=== PATIENT | male | born 1980 | race Caucasian/White ===

== ENCOUNTER 2016-05-28 23:47 | Emergency (ER) | payer MEDICAID ==
[~2016-05-28] VITALS: Ht 188 cm; Wt 105.0 kg
[~2016-05-28 23:47] MED LIST: BACL10TA PO; BUSP5TAB PO; GABA600T PO; MULTCAP3; OXYC-259 PO; OXYC-395 PO; VITA10003 PO
[2016-05-28 23:49] VITALS: BP 158/85; PULSE 90; RESP 20; TEMP 97.9; O2SAT 100
[2016-05-29 01:36] VITALS: BP 131/88; PULSE 85; RESP 16; O2SAT 97
[2016-05-29] MEDS ORDERED: ONDANSETRON HCL 4 MG/2 ML VIAL IV PUSH ONE (02:00)
[2016-05-29] MEDS ORDERED: HYDROmorphone HCL PF 1 MG/ML VIAL IV PUSH ONE (02:00)
[2016-05-29] MEDS ORDERED: SODIUM CHLOR 0.9% 1000 ML INJ 1,000 ML IV ONE (02:00)
--- NOTE | 2016-05-29 02:00 | PD ---
HPI Chief Complaint: Back/ Neck Pain or Injury Time Seen by Provider: 00:48 Travel History International Travel<30 days: No Contact w/Intl Traveler<30days: No Traveled to known affect area: No History of Present Illness HPI 36-year-old male complains of back pain. Patient has severe chronic back pain, status post back surgery and has been seen by neurosurgeon and pain management for back pain. Patient recently was seen at [facility] and has CT scan of the back and was referred to see Dr. Shetty for follow-up. Patient has appointment with Dr. Padron 2 days. Patient states that he has increasing pain today from upper back to low back area. Patient states that he has insomnia and poor appetite for the pain. Patient denies any recent injury. Patient denies any fever chills. Patient denies any problem with bladder or bowel control. Patient denies any focal weakness and numbness of extremity. Patient states that he has tingling sensation of the right upper extremity recently. PFSH Past Medical History Diminished Hearing: No Headaches: No Herniated Disk: Yes Musculoskeletal: Yes (CHRONIC BACK PAIN l3 repair. 4 herniated discs neck and back) Immunizations Current: Yes Past Surgical History Abdominal Surgery: No Cardiac Surgery: No Ear Surgery: No Endocrine Surgery: No Eye Surgery: No Genitourinary Surgery: No Gynecologic Surgery: No Joint Replacement: No Neurologic Surgery: Yes (laminecotomy and discectomy) Oral Surgery: No Thoracic Surgery: No Other Surgery: Yes (SKIN GRAFT ON RIGHT HAND AND ARM) Social History Alcohol Use: No Tobacco Use: No Substance Use: No Allergies-Medications (Allergen,Severity, Reaction): Coded Allergies: Decadron (Verified Allergy, Mild, RASH, 05/28/16) Morphine (Verified Allergy, Unknown, Anaphylaxis, 05/28/16) Reported Meds & Prescriptions Reported Meds & Active Scripts Active Reported Buspirone (Buspirone HCl) 5 Mg Tab 5 Mg PO BID Multivitamins (Multiple Vitamin) 1 Cap Cap Vitamin D-3 (Cholecalciferol) 1,000 Unit Tab 5,000 Units PO DAILY Baclofen 10 Mg Tab 10 Mg PO HS PRN Oxycontin (Oxycodone HCl) 10 Mg Tab 10 Mg PO Q12HR Gabapentin 600 Mg Tab 600 Mg PO BID Review of Systems General / Constitutional: No: Fever Eyes: No: Visual changes HENT: No: Headaches Cardiovascular: No: Chest Pain or Discomfort Respiratory: No: Shortness of Breath Gastrointestinal: No: Abdominal Pain Genitourinary: No: Dysuria Musculoskeletal: No: Pain Skin: No Rash Neurologic: No: Weakness Psychiatric: No: Depression Endocrine: No: Polydipsia Hematologic/Lymphatic: No: Easy Bruising Physical Exam Narrative GENERAL: Well-nourished, well-developed patient. SKIN: Warm and dry. HEAD: Normocephalic. EYES: No scleral icterus. No injection or drainage. NECK: Supple, trachea midline. No JVD or lymphadenopathy. CARDIOVASCULAR: Regular rate and rhythm without murmurs, gallops, or rubs. RESPIRATORY: Breath sounds equal bilaterally. No accessory muscle use. GASTROINTESTINAL: Abdomen soft, non-tender, nondistended. MUSCULOSKELETAL: No cyanosis, or edema. BACK: Patient has moderate tenderness on palpation thoracic lumbar area, without obvious deformity. No CVA tenderness. Neurologic exam: Patient is awake and alert oriented 3. Patient had limited range of motion upper and lower extremity secondary to pain. Otherwise no obvious deformity. Sensorimotor function distally intact. Deep tendon reflexes 2+ and equal. Negative Babinski. Data Data Last Documented VS Vital Signs Date Time Temp Pulse Resp B/P Pulse Ox O2 Delivery O2 Flow Rate FiO2 05/29/16 01:36 85 16 131/88 97 Room Air 05/28/16 23:49 97.9 Orders Complete Blood Count With Diff (05/29/16 01:52) Basic Metabolic Panel (Bmp) (05/29/16 01:52) Iv Access Insert/Monitor (05/29/16 01:52) Ecg Monitoring (05/29/16 01:52) Oximetry (05/29/16 01:52) Ct Thor Spine W/O Contrast (05/29/16 01:52) Ct Lumb Spine W/O Contrast (05/29/16 01:52) Hydromorphone Pf Inj (Dilaudid Pf Inj) (05/29/16 02:00) Ondansetron Inj (Zofran Inj) (05/29/16 02:00) Sodium Chlor 0.9% 1000 Ml Inj (Ns 1000 M (05/29/16 02:00) Labs Laboratory Tests Test 05/29/16 02:00 White Blood Count 6.3 TH/MM3 Red Blood Count 5.05 MIL/MM3 Hemoglobin 15.0 GM/DL Hematocrit 43.0 % Mean Corpuscular Volume 85.2 FL Mean Corpuscular Hemoglobin 29.7 PG Mean Corpuscular Hemoglobin 34.9 % Concent Red Cell Distribution Width 12.2 % Platelet Count 206 TH/MM3 Mean Platelet Volume 9.4 FL Neutrophils (%) (Auto) 59.9 % Lymphocytes (%) (Auto) 31.7 % Monocytes (%) (Auto) 7.3 % Eosinophils (%) (Auto) 0.5 % Basophils (%) (Auto) 0.6 % Neutrophils # (Auto) 3.8 TH/MM3 Lymphocytes # (Auto) 2.0 TH/MM3 Monocytes # (Auto) 0.5 TH/MM3 Eosinophils # (Auto) 0.0 TH/MM3 Basophils # (Auto) 0.0 TH/MM3 CBC Comment DIFF FINAL Differential Comment Sodium Level 140 MEQ/L Potassium Level 3.5 MEQ/L Chloride Level 103 MEQ/L Carbon Dioxide Level 29.8 MEQ/L Anion Gap 7 MEQ/L Blood Urea Nitrogen 13 MG/DL Creatinine 0.98 MG/DL Estimat Glomerular Filtration 88 ML/MIN Rate Random Glucose 103 MG/DL Calcium Level 9.3 MG/DL MDM Medical Decision Making Medical Screen Exam Complete: Yes Emergency Medical Condition: Yes Interpretation(s) 3:[address] shows disc protrusion at L4-L5 with severe stenosis. CT thoracic spine shows DJD changes and disc protrusion at T7-T8. CBC within normal limit. BMP within normal limit. Differential Diagnosis Differential diagnosis including acute exacerbation of back pain, fracture, HNP. Narrative Course 36-year-old male with acute exacerbation of back pain. Normal saline solution 1 L IV bolus. Dilaudid 1 mg IV. Zofran 4 mg IV. Diagnosis Primary Impression: Acute exacerbation of chronic low back pain Patient Instructions: General Instructions Additional Instructions: Continue with medications. Follow-up with personal physician and Dr. Shetty as directed. Return if worse. Med/Other Pt SpecificInfo: No Change to Meds Disposition: 01 DISCHARGE HOME Condition: Stable Matty Gunter MD May 29, 2016 02:00
[2016-05-29 02:27] LABS: AUTOMATED NEUTROPHIL # 3.8 TH/MM3 (1.8-7.7); BASOPHIL % 0.6 % (0.0-2.0); EOSINOPHIL % 0.5 % (0.0-4.0); HEMO FLAGS DIFF FINAL; LYMPH % 31.7 % (9.0-44.0); MEAN CELL VOLUME 85.2 FL (80.0-100.0); MEAN CORPUSCULAR HEMOGLOBIN 29.7 PG (27.0-34.0); MEAN CORPUSCULAR HGB CONC 34.9 % (32.0-36.0); MONO % 7.3 % (0.0-8.0); NEUT % 59.9 % (16.0-70.0); PLATELET COUNT 206 TH/MM3 (150-450); RED BLOOD COUNT 5.05 MIL/MM3 (4.50-5.90); RED CELL DISTRIBUTION WIDTH 12.2 % (11.6-17.2); WHITE BLOOD COUNT 6.3 TH/MM3 (4.0-11.0)
[2016-05-29 02:37] LABS: BICARBONATE 29.8 MEQ/L (21.0-32.0); POTASSIUM 3.5 MEQ/L (3.5-5.1)
--- NOTE | 2016-05-29 03:12 | RADRPT ---
EXAM DATE/TIME: 05/29/2016 02:41 [facility] COMPARISON: CT LUMBAR SPINE W/O CONTRAST, May 29, 2016, 2:44. CT THORACIC SPINE W/O CONTRAST, April 21, 22:07. CT LUMBAR SPINE W/O CONTRAST, April 21, 2015, 22:07. INDICATIONS : Severe back pain, trouble ambulating. RADIATION DOSE: 29.08 CTDIvol (mGy) ; Combined studies - Thoracic Spine/Lumbar Spine MEDICAL HISTORY : None SURGICAL HISTORY : Laminectomy. Discectomy. L3 repair. ENCOUNTER: Initial ACUITY: 1 day PAIN SCALE: 10/10 LOCATION: thoracic TECHNIQUE: Volumetric scanning of the thoracic spine was performed. Multiplanar reconstructions in the sagittal , coronal and oblique axial planes were performed. Using automated exposure control and adjustment o f the mA and/or kV according to patient size, radiation dose was kept as low as reasonably achievable to obtain optimal diagnostic quality images. FINDINGS: The vertebral bodies of the thoracic spine are in normal alignment without evidence of subluxation. Vertebral body height is maintained. No fractures are seen. Multilevel osteophyte formation is again seen throughout the thoracic spine there are no compression deformities. T1-T2: Normal. T2-T3: The thecal sac has a normal diameter. No evidence of disc bulge or protrusion. T3-T4: The thecal sac has a normal diameter. No evidence of disc bulge or protrusion. T4-T5: The thecal sac has a normal diameter. No evidence of disc bulge or protrusion. T5-T6: The thecal sac has a normal diameter. No evidence of disc bulge or protrusion. T6-T7: The thecal sac has a normal diameter. No evidence of disc bulge or protrusion. T7-T8: Stable left central disc protrusion without canal or foraminal stenosis. T8-T9: The thecal sac has a normal diameter. No evidence of disc bulge or protrusion. T9-T10: The thecal sac has a normal diameter. No evidence of disc bulge or protrusion. T10-T11: The thecal sac has a normal diameter. No evidence of disc bulge or protrusion. T11-T12: The thecal sac has a normal diameter. No evidence of disc bulge or protrusion. T12-L1: The thecal sac has a normal diameter. No evidence of disc bulge or protrusion. CONCLUSION: 1. Stable mild degenerative changes including a disc protrusion at T7-8 as described above. Wilfrido A. Georgi, MD on May 29, 2016 at 3:08 Board Certified Radiologist. This report was verified electronically.
--- NOTE | 2016-05-29 03:15 | RADRPT ---
EXAM DATE/TIME: 05/29/2016 02:44 [facility] COMPARISON: CT THORACIC SPINE W/O CONTRAST, May 29, 2016, 2:41. CT THORACIC SPINE W/O CONTRAST, April 21, 2015, 22:07. CT LUMBAR SPINE W/O CONTRAST, April 21, 2015, 22:07. INDICATIONS : Severe back pain, trouble ambulating. RADIATION DOSE: 29.08 CTDIvol (mGy) ; Combined studies - Thoracic Spine/Lumbar Spine MEDICAL HISTORY : None SURGICAL HISTORY : Laminectomy. Discectomy. L3 repair. ENCOUNTER: Initial ACUITY: 1 day PAIN SCALE: 10/10 LOCATION: lumbar TECHNIQUE: Volumetric scanning of the lumbar spine was performed. Multiplanar reconstructions in the sagittal, coronal and oblique axial planes were performed. Using automated exposure control and adjustment of the mA and/or kV according to patient size, radiation dose was kept as low as reasonably achievable t o obtain optimal diagnostic quality images. FINDINGS: VERTEBRAE: Normal vertebral body height. Mild anterior osteophyte formation. Mild disc space narrowing greatest at L5-S1 with mild reactive sclerosis along the superior aspect of S1, stable. There are no fractures . ALIGNMENT: No evidence of subluxation. T12-L1: The thecal sac has a normal diameter. No evidence of disc bulge or protrusion. The neural foramina are patent bilaterally. L1-L2: The thecal sac has a normal diameter. No evidence of disc bulge or protrusion. The neural foramina are patent bilaterally. L2-L3: The thecal sac has a normal diameter. No evidence of disc bulge or protrusion. The neural foramina are patent bilaterally. L3-L4: Mild diffuse disc bulge is again seen and not significantly changed. Mild facet and ligamentum flavum hypertrophy with no canal or foraminal narrowing. L4-L5: A diffuse disc bulge is again seen with superimposed left central disc protrusion with inferior migra tion increased in prominence from the previous study resulting in severe canal stenosis and mass effe ct on the nerve roots within the thecal sac. The protrusion measures at least 1.2 x 1.1 cm in transve rse and AP dimension as measured on axial image 70 of series 305. There is mild mass effect on the le ft L4 exiting nerve and S1 nerve roots of the left lateral recess. Moderate facet and ligamentum flav um hypertrophy. L5-S1: Right central protrusion abutting the S1 nerve roots with mild left, severe right foraminal narrowing . This is stable. CONCLUSION: Disc protrusion at L4-5 is increased in prominence with inferior migration and severe stenosis. Other denton stable degenerative changes. Wilfrido Laureano MD on May 29, 2016 at 3:10 Board Certified Radiologist. This report was verified electronically.
[2016-06-01] MEDS ORDERED: BACL20TA (14:13)
[2016-06-01] MEDS ORDERED: ESCI10TA (14:13)
[2016-06-01] MEDS ORDERED: DIAZ5TAB (14:13)
[2016-06-01] MEDS ORDERED: HYDR2TAB (14:13)
== END 2016-05-29 04:32 | disposition home or self-care (01) ==
LOC: NEPE 23:47
DX: M54.9 Dorsalgia, unspecified (principal); M19.90 Unspecified osteoarthritis, unspecified site; Z98.890 Other specified postprocedural states
CPT/HCPCS: 72128; 72131; 80048; 85025; 96374; 96375; 99284; J1170; J2405; J7030

== ENCOUNTER 2017-06-23 17:20 | Emergency (ER) | payer MEDICAID, MEDICARE ==
[~2017-06-23] VITALS: Ht 188 cm; Wt 109.0 kg
[~2017-06-23 17:20] MED LIST changes: -BACL10TA PO; +BACL20TA; +DIAZ5TAB; +ESCI10TA; +HYDR2TAB; +OXYC-103 PO; -OXYC-259 PO; -OXYC-395 PO
[2017-06-23 17:37] VITALS: BP 137/74; PULSE 104; RESP 24; TEMP 98; O2SAT 98
[2017-06-23 17:45] VITALS: PULSE 110; RESP 24; O2SAT 97
[2017-06-23] MEDS ORDERED: SODIUM CHLORIDE 0.9% FLUSH 10 ML FLUSH IVF PRN (17:45)
[2017-06-23 18:34] LABS: AUTOMATED NEUTROPHIL # 3.2 TH/MM3 (1.8-7.7); BASOPHIL % 0.5 % (0.0-2.0); EOSINOPHIL % 0.8 % (0.0-4.0); HEMATOCRIT 41.4 % (39.0-51.0); HEMOGLOBIN 14.5 GM/DL (13.0-17.0); LYMPHOCYTE # 2.2 TH/MM3 (1.0-4.8); MEAN CELL VOLUME 84.5 FL (80.0-100.0); MEAN CORPUSCULAR HEMOGLOBIN 29.6 PG (27.0-34.0); MEAN CORPUSCULAR HGB CONC 35.1 % (32.0-36.0); MONO % 8.7 % (0.0-8.0); MONOCYTE # 0.5 TH/MM3 (0-0.9); PLATELET COUNT 240 TH/MM3 (150-450); RED CELL DISTRIBUTION WIDTH 12.5 % (11.6-17.2)
[2017-06-23 18:37] LABS: PROTHROMBIN TIME - PATIENT 10.5 SEC (9.8-11.6)
--- NOTE | 2017-06-23 18:45 | PD ---
HPI Chief Complaint: Numbness/Tingling Time Seen by Provider: 17:41 Travel History International Travel<30 days: No Contact w/Intl Traveler<30days: No Traveled to known affect area: No History of Present Illness HPI 37 y/o male presents after he had a fall from standing and now has pain in his neck and down his entire spine. He states he also has tingling to his bilateral lower legs. He states he hit his head. He denies any other concurrent complaints. He presents by ambulance. He states he has history of herniated disc. He denies any other concurrent complaints. Quality is tingly. Location is lower legs. His vitals were stable in route. PFSH Past Medical History Asthma: Yes Diminished Hearing: No GERD: No Headaches: No Herniated Disk: Yes Musculoskeletal: Yes (CHRONIC BACK PAIN l3 repair. 4 herniated discs neck and back) Immunizations Current: Yes Tetanus Vaccination: < 5 Years Past Surgical History Abdominal Surgery: No AICD: No Cardiac Surgery: No Ear Surgery: No Endocrine Surgery: No Eye Surgery: No Genitourinary Surgery: No Gynecologic Surgery: No Joint Replacement: No Neurologic Surgery: Yes (laminecotomy and discectomy) Oral Surgery: No Thoracic Surgery: No Other Surgery: Yes (SKIN GRAFT ON RIGHT HAND AND ARM) Social History Alcohol Use: No Tobacco Use: No Substance Use: No Allergies-Medications (Allergen,Severity, Reaction): Coded Allergies: dexamethasone (Unverified Allergy, Mild, RASH, 11/15/16) morphine (Unverified Allergy, Unknown, Anaphylaxis, 11/15/16) Reported Meds & Prescriptions Reported Meds & Active Scripts Active Reported Diazepam 5 Mg Tab Escitalopram (Escitalopram Oxalate) 10 Mg Tab Hydromorphone (Hydromorphone HCl) 2 Mg Tab Baclofen 20 Mg Tab Buspirone (Buspirone HCl) 5 Mg Tab 5 Mg PO BID Multivitamins (Multiple Vitamin) 1 Cap Cap Vitamin D-3 (Cholecalciferol) 1,000 Unit Tab 5,000 Units PO DAILY Oxycontin (Oxycodone HCl) 10 Mg Tab 10 Mg PO Q12HR Gabapentin 600 Mg Tab 600 Mg PO BID Review of Systems Except as stated in HPI: all other systems reviewed are Neg Physical Exam Narrative GENERAL: 37 y/o male in no apparent distress Skin: Warm and dry Eyes: Pupils equal ENT: no septal hematoma NECK: C-collar in place Cardiovascular: Regular rate and rhythm Respiratory: Normal respiratory effort noted, clear to auscultation bilaterally Abdomen: soft, nontender, nondistended Back: No step-offs, midline spine tender throughout lower thoracic and upper lumbar spine with logroll Extremities: No pain over main joints Neuro: awake, alert, sensation and motor grossly intact Data Data Last Documented VS Vital Signs Date Time Temp Pulse Resp B/P (MAP) Pulse Ox O2 Delivery O2 Flow Rate FiO2 06/23/17 17:46 105 24 97 Room Air 06/23/17 17:37 98.0 137/74 (95) Orders Orders Basic Metabolic Panel (Bmp) (06/23/17 17:41) Complete Blood Count With Diff (06/23/17 17:41) Prothrombin Time / Inr (Pt) (06/23/17 17:41) Act Partial Throm Time (Ptt) (06/23/17 17:41) Type And Screen (06/23/17 17:41) Chest, Single Ap (06/23/17 17:41) Ct Brain W/O Iv Contrast(Rout) (06/23/17 17:41) Ct Cerv Spine W/O Contrast (06/23/17 17:41) Iv Access Insert/Monitor (06/23/17 17:41) Ecg Monitoring (06/23/17 17:41) Oximetry (06/23/17 17:41) Sodium Chloride 0.9% Flush (Ns Flush) (06/23/17 17:45) Ct Thor Spine W/O Contrast (06/23/17 17:41) Ct Lumb Spine W/O Contrast (06/23/17 17:41) Labs Laboratory Tests Test 06/23/17 18:15 White Blood Count 6.0 TH/MM3 Red Blood Count 4.90 MIL/MM3 Hemoglobin 14.5 GM/DL Hematocrit 41.4 % Mean Corpuscular Volume 84.5 FL Mean Corpuscular Hemoglobin 29.6 PG Mean Corpuscular Hemoglobin Concent 35.1 % Red Cell Distribution Width 12.5 % Platelet Count 240 TH/MM3 Mean Platelet Volume 8.0 FL Neutrophils (%) (Auto) 53.0 % Lymphocytes (%) (Auto) 37.0 % Monocytes (%) (Auto) 8.7 % Eosinophils (%) (Auto) 0.8 % Basophils (%) (Auto) 0.5 % Neutrophils # (Auto) 3.2 TH/MM3 Lymphocytes # (Auto) 2.2 TH/MM3 Monocytes # (Auto) 0.5 TH/MM3 Eosinophils # (Auto) 0.0 TH/MM3 Basophils # (Auto) 0.0 TH/MM3 CBC Comment DIFF FINAL Differential Comment Prothrombin Time 10.5 SEC Prothromb Time International Ratio 1.0 RATIO Activated Partial Thromboplast Time 27.8 SEC Blood Urea Nitrogen 9 MG/DL Creatinine 0.89 MG/DL Random Glucose 113 MG/DL Calcium Level 10.0 MG/DL Sodium Level 139 MEQ/L Potassium Level 3.7 MEQ/L Chloride Level 102 MEQ/L Carbon Dioxide Level 27.0 MEQ/L Anion Gap 10 MEQ/L Estimat Glomerular Filtration Rate 97 ML/MIN [facility] Medical Decision Making Medical Screen Exam Complete: Yes Emergency Medical Condition: Yes Medical Record Reviewed: Yes (past history confirmed) Differential Diagnosis Fracture, disc herniation, radiculopathy Narrative Course Will check blood work, chest x-ray, CT spine and reevaluate Physician Communication Physician Communication dr uday pearce workup and reeval Sussy Galicia MD Jun 23, 2017 18:45
[2017-06-23 18:58] LABS: CREATININE 0.89 MG/DL (0.60-1.30)
--- NOTE | 2017-06-23 19:06 | RADRPT ---
EXAM DATE/TIME: 06/23/2017 18:08 [facility] COMPARISON: No previous studies available for comparison. INDICATIONS : Pain from fall, shortness of breath and seizure-like body twitches. MEDICAL HISTORY : None. SURGICAL HISTORY : None. ENCOUNTER: Initial ACUITY: 1 day PAIN SCORE: 5/10 LOCATION: Bilateral chest FINDINGS: A single view of the chest demonstrates the lungs to be symmetrically aerated without evidence of mas s, infiltrate or effusion. The cardiomediastinal contours are unremarkable. Osseous structures are intact. CONCLUSION: No acute disease. Pravni Reynolds MD on June 23, 2017 at 19:03 Board Certified Radiologist. This report was verified electronically.
--- NOTE | 2017-06-23 19:19 | RADRPT ---
EXAM DATE/TIME: 06/23/2017 18:55 [facility] COMPARISON: No previous studies available for comparison. INDICATIONS : Trauma; fall. RADIATION DOSE: 58.69 CTDIvol (mGy) MEDICAL HISTORY : None SURGICAL HISTORY : Laminectomy ENCOUNTER: Initial ACUITY: 1 day PAIN SCALE: 6/10 LOCATION: cranial TECHNIQUE: Multiple contiguous axial images were obtained of the head. Using automated exposure control and adj ustment of the mA and/or kV according to patient size, radiation dose was kept as low as reasonably a chievable to obtain optimal diagnostic quality images. DICOM format image data is available electro nically for review and comparison. FINDINGS: CEREBRUM: The ventricles are normal for age. No evidence of midline shift, mass lesion, hemorrhage or acute in farction. No extra-axial fluid collections are seen. POSTERIOR FOSSA: The cerebellum and brainstem are intact. The 4th ventricle is midline. The cerebellopontine angle i s unremarkable. EXTRACRANIAL: The visualized portion of the orbits is intact. SKULL: The calvaria is intact. No evidence of skull fracture. CONCLUSION: 1. No acute intracranial abnormalities. Pravin Reynolds MD on June 23, 2017 at 19:15 Board Certified Radiologist. This report was verified electronically.
--- NOTE | 2017-06-23 20:01 | RADRPT ---
EXAM DATE/TIME: 06/23/2017 18:55 [facility] COMPARISON: CT CERVICAL SPINE W/O CONTRAST, April 21, 2015, 22:00. INDICATIONS : Trauma; fall. RADIATION DOSE: 19.57 CTDIvol (mGy) MEDICAL HISTORY : None SURGICAL HISTORY : Laminectomy ENCOUNTER: Initial ACUITY: 1 day PAIN SCALE: 6/10 LOCATION: neck TECHNIQUE: Volumetric scanning of the cervical spine was performed. Multiplanar reconstructions in the sagittal, coronal and oblique axial planes were performed. Using automated exposure control and adjustment o f the mA and/or kV according to patient size, radiation dose was kept as low as reasonably achievable to obtain optimal diagnostic quality images. DICOM format image data is available electronically f or review and comparison. FINDINGS: VERTEBRAE: Normal vertebral body height. ALIGNMENT: No evidence of subluxation. C2-C3: The bony spinal canal is normal in size. No evidence of disc bulge or herniation. The neural forami na are bilaterally patent. C3-C4: The bony spinal canal is normal in size. No evidence of disc bulge or herniation. The neural forami na are bilaterally patent. C4-C5: The bony spinal canal is normal in size. No evidence of disc bulge or herniation. The neural forami na are bilaterally patent. C5-C6: The bony spinal canal is normal in size. No evidence of disc bulge or herniation. The neural forami na are bilaterally patent. C6-C7: The bony spinal canal is normal in size. No evidence of disc bulge or herniation. The neural forami na are bilaterally patent. C7-T1: The bony spinal canal is normal in size. No evidence of disc bulge or herniation. The neural forami na are bilaterally patent. CONCLUSION: Normal examination for a patient of this age. No significant change has occurred. Pravin Reynolds MD on June 23, 2017 at 19:56 Board Certified Radiologist. This report was verified electronically.
--- NOTE | 2017-06-23 20:15 | RADRPT ---
EXAM DATE/TIME: 06/23/2017 19:02 [facility] COMPARISON: No previous studies available for comparison. INDICATIONS : Trauma; fall. RADIATION DOSE: 34.88 CTDIvol (mGy) ; Combined studies - Thoracic Spine/Lumbar Spine MEDICAL HISTORY : None SURGICAL HISTORY : Laminectomy ENCOUNTER: Initial ACUITY: 1 day PAIN SCALE: 6/10 LOCATION: upper back TECHNIQUE: Volumetric scanning of the thoracic spine was performed. Multiplanar reconstructions in the sagittal , coronal and oblique axial planes were performed. Using automated exposure control and adjustment o f the mA and/or kV according to patient size, radiation dose was kept as low as reasonably achievable to obtain optimal diagnostic quality images. DICOM format image data is available electronically f or review and comparison. FINDINGS: The vertebral bodies of the thoracic spine are in normal alignment without evidence of subluxation. Vertebral body height is maintained. No fractures are seen. T1-T2: Normal. T2-T3: The thecal sac has a normal diameter. No evidence of disc bulge or protrusion. T3-T4: The thecal sac has a normal diameter. No evidence of disc bulge or protrusion. T4-T5: The thecal sac has a normal diameter. No evidence of disc bulge or protrusion. T5-T6: The thecal sac has a normal diameter. No evidence of disc bulge or protrusion. T6-T7: The thecal sac has a normal diameter. No evidence of disc bulge or protrusion. T7-T8: The thecal sac has a normal diameter. No evidence of disc bulge or protrusion. T8-T9: The thecal sac has a normal diameter. No evidence of disc bulge or protrusion. T9-T10: The thecal sac has a normal diameter. No evidence of disc bulge or protrusion. T10-T11: The thecal sac has a normal diameter. No evidence of disc bulge or protrusion. T11-T12: The thecal sac has a normal diameter. No evidence of disc bulge or protrusion. T12-L1: The thecal sac has a normal diameter. No evidence of disc bulge or protrusion. CONCLUSION: 1. No acute findings. Mild degenerative change. Pravin Reynolds MD on June 23, 2017 at 20:10 Board Certified Radiologist. This report was verified electronically.
--- NOTE | 2017-06-23 20:17 | RADRPT ---
EXAM DATE/TIME: 06/23/2017 19:02 [facility] COMPARISON: No previous studies available for comparison. INDICATIONS : Trauma; fall. RADIATION DOSE: 34.88 CTDIvol (mGy) MEDICAL HISTORY : None SURGICAL HISTORY : Laminectomy ENCOUNTER: Initial ACUITY: 1 day PAIN SCALE: 6/10 LOCATION: lower back TECHNIQUE: Volumetric scanning of the lumbar spine was performed. Multiplanar reconstructions in the sagittal, coronal and oblique axial planes were performed. Using automated exposure control and adjustment of the mA and/or kV according to patient size, radiation dose was kept as low as reasonably achievable t o obtain optimal diagnostic quality images. DICOM format image data is available electronically for review and comparison. FINDINGS: No acute fracture or spondylolisthesis. Broad-based posterior disc bulges or mild protrusions at L3-4 -5-S1. Mild degenerative disc disease. CONCLUSION: 1. No acute findings. Degenerative change as above. Pravin Reynolds MD on June 23, 2017 at 20:12 Board Certified Radiologist. This report was verified electronically.
--- NOTE | 2017-06-23 20:33 | PD ---
Physical Exam Date Seen by Provider: Jun 23, 2017 Narrative This patient was signed out to me at 7 PM pending radiographic studies. The patient reports a fall from a standing height earlier today. He states that he was unable to get up following the fall and laid in the floor for approximately 2 hours before help pain. He states that he has a history of chronic back pain and that he fall exacerbated the back pain. He comes in complaining with pain down his entire spine along with numbness and tingling in both lower extremities as well as his upper extremities. The patient is lying on the bed moving all 4 extremities equally. He does not appear to be in any distress. Data Data Last Documented VS Vital Signs Date Time Temp Pulse Resp B/P (MAP) Pulse Ox O2 Delivery O2 Flow Rate FiO2 06/23/17 17:46 105 24 97 Room Air 06/23/17 17:37 98.0 137/74 (95) Orders Orders Basic Metabolic Panel (Bmp) (06/23/17 17:41) Complete Blood Count With Diff (06/23/17 17:41) Prothrombin Time / Inr (Pt) (06/23/17 17:41) Act Partial Throm Time (Ptt) (06/23/17 17:41) Type And Screen (06/23/17 17:41) Chest, Single Ap (06/23/17 17:41) Ct Brain W/O Iv Contrast(Rout) (06/23/17 17:41) Ct Cerv Spine W/O Contrast (06/23/17 17:41) Iv Access Insert/Monitor (06/23/17 17:41) Ecg Monitoring (06/23/17 17:41) Oximetry (06/23/17 17:41) Sodium Chloride 0.9% Flush (Ns Flush) (06/23/17 17:45) Ct Thor Spine W/O Contrast (06/23/17 17:41) Ct Lumb Spine W/O Contrast (06/23/17 17:41) Creatine Kinase (Cpk) (06/23/17 19:46) Ed Discharge Order (06/23/17 20:49) Labs Laboratory Tests Test 06/23/17 18:15 White Blood Count 6.0 TH/MM3 Red Blood Count 4.90 MIL/MM3 Hemoglobin 14.5 GM/DL Hematocrit 41.4 % Mean Corpuscular Volume 84.5 FL Mean Corpuscular Hemoglobin 29.6 PG Mean Corpuscular Hemoglobin Concent 35.1 % Red Cell Distribution Width 12.5 % Platelet Count 240 TH/MM3 Mean Platelet Volume 8.0 FL Neutrophils (%) (Auto) 53.0 % Lymphocytes (%) (Auto) 37.0 % Monocytes (%) (Auto) 8.7 % Eosinophils (%) (Auto) 0.8 % Basophils (%) (Auto) 0.5 % Neutrophils # (Auto) 3.2 TH/MM3 Lymphocytes # (Auto) 2.2 TH/MM3 Monocytes # (Auto) 0.5 TH/MM3 Eosinophils # (Auto) 0.0 TH/MM3 Basophils # (Auto) 0.0 TH/MM3 CBC Comment DIFF FINAL Differential Comment Prothrombin Time 10.5 SEC Prothromb Time International Ratio 1.0 RATIO Activated Partial Thromboplast Time 27.8 SEC Blood Urea Nitrogen 9 MG/DL Creatinine 0.89 MG/DL Random Glucose 113 MG/DL Calcium Level 10.0 MG/DL Sodium Level 139 MEQ/L Potassium Level 3.7 MEQ/L Chloride Level 102 MEQ/L Carbon Dioxide Level 27.0 MEQ/L Anion Gap 10 MEQ/L Estimat Glomerular Filtration Rate 97 ML/MIN Total Creatine Kinase 11 U/L MDM Supervised Visit with DOE: No Narrative Course CBC & BMP Diagram 06/23/17 18:15 Calcium Level 10.0 CK 11 Vital Signs Date Time Temp Pulse Resp B/P (MAP) Pulse Ox O2 Delivery O2 Flow Rate FiO2 06/23/17 17:46 105 24 97 Room Air 06/23/17 17:45 110 24 97 Room Air 06/23/17 17:37 98.0 104 24 137/74 (95) 98 The patient's family is in the room with him now. Their major concern was the tremors. He has chronic problems with his neck and back so they are not surprised about those symptoms. I have explained to them that the most likely etiology for the tremors and hyperventilation (which they also described) is anxiety. Diagnosis Primary Impression: Fall Qualified Codes: W19.XXXA - Unspecified fall, initial encounter Additional Impressions: Acute exacerbation of chronic low back pain Paresthesias Patient Instructions: Back Pain (ED), General Instructions, Paresthesia (ED) Additional Instruction: Follow-up with your doctor for any ongoing symptoms. Disposition: 01 DISCHARGE HOME Condition: Stable Nidia Kim MD Jun 23, 2017 20:33
== END 2017-06-23 21:39 | disposition home or self-care (01) ==
LOC: NEPC 17:20
DX: M54.9 Dorsalgia, unspecified (principal); M54.2 Cervicalgia; S09.90XA Unspecified injury of head, initial encounter; W19.XXXA Unspecified fall, initial encounter; G89.29 Other chronic pain; R20.2 Paresthesia of skin; R25.1 Tremor, unspecified; R06.4 Hyperventilation; J45.909 Unspecified asthma, uncomplicated
CPT/HCPCS: 70450; 71045; 72125; 72128; 72131; 80048; 82550; 85025; 85610; 85730; 86850; 86900; 86901